=== PATIENT | male | born 1980 | race African-American/Black ===

== ENCOUNTER 2017-04-03 16:18 | Emergency (ER) | payer SELFPAY ==
[~2017-04-03] VITALS: Ht 195.6 cm; Wt 99.8 kg
[~2017-04-03 16:18] MED LIST: HYDR-971 PO; SULF1TAB24 PO
[2017-04-03 16:28] VITALS: BP 160/96
[2017-04-03] MEDS ORDERED: ORPH100T PO (16:37)
[2017-04-03] MEDS ORDERED: TRAM50TA PO (16:37)
[2017-04-03] MEDS ORDERED: NAPR500T PO (16:37)
--- NOTE | 2017-04-03 16:38 | PHYS DOC ---
Past Medical History Past Medical History: Abscess Past Surgical History: No Surgical History Alcohol Use: Occasionally Drug Use: None Adult General Chief Complaint Chief Complaint: Neck Pain HPI HPI Patient is a 37 year old male that presents to the emergency department with complaints of neck pain for 2 days. Patient states that today after he slept on the couch with his 6-year-old daughter he awakened with neck pain. He states he' s had no fever, no headache, no nausea, no vomiting, no sore throat. Patient states that the pain is in the sides of the neck. He has no difficulty with swallowing or phonation. He has no numbness, tingling or loss of function of upper lower extremity is. Radiation pain. Review of Systems Review of Systems Constitutional: Denies fever or chills [] Eyes: Denies change in visual acuity, redness, or eye pain [] HENT: Denies nasal congestion or sore throat [] Respiratory: Denies cough or shortness of breath [] Cardiovascular: No additional information not addressed in HPI [] GI: Denies abdominal pain, nausea, vomiting, bloody stools or diarrhea [] : Denies dysuria or hematuria [] Musculoskeletal: Neck pain Integument: Denies rash or skin lesions [] Neurologic: Denies headache, focal weakness or sensory changes [] Endocrine: Denies polyuria or polydipsia [] Allergies Allergies Allergies Coded Allergies Type Severity Reaction Last Updated Verified No Known Drug Allergies 09/13/16 No Physical Exam Physical Exam Constitutional: Well developed, well nourished, no acute distress, non-toxic appearance. [] HENT: Normocephalic, atraumatic, bilateral external ears normal, oropharynx moist, no oral exudates, nose normal. [] Eyes: PERRLA, EOMI, conjunctiva normal, no discharge. [] Neck: No midline or para cervical tenderness. The patient does have mild tenderness to palpate sternocleidomastoid muscle. No meningeal signs Cardiovascular:Heart rate regular rhythm, no murmur [] Lungs & Thorax: Bilateral breath sounds clear to auscultation [] Abdomen: Bowel sounds normal, soft, no tenderness, no masses, no pulsatile masses. [] Skin: Warm, dry, no erythema, no rash. [] Back: No tenderness, no CVA tenderness. [] Extremities: No tenderness, no cyanosis, no clubbing, ROM intact, no edema. [] Neurologic: Alert and oriented X 3, normal motor function, normal sensory function, no focal deficits noted. Cranial nerves II through XII are grossly intact, muscle strength is 5 over 5 all extremities [] Psychologic: Affect normal, judgement normal, mood normal. [] EKG EKG [] Radiology/Procedures Radiology/Procedures [] Course & Med Decision Making Course & Med Decision Making Pertinent Labs and Imaging studies reviewed. (See chart for details) [] Dragon Disclaimer Dragon Disclaimer This electronic medical record was generated, in whole or in part, using a voice recognition dictation system. Departure Departure Impression: Primary Impression: Neck muscle strain Disposition: HOME, SELF-CARE Condition: STABLE Referrals: NO PCP (PCP) [facility] Patient Instructions: Muscle Strain Additional Instructions: Moist heat to affected area Scripts Tramadol Hcl (TRAMADOL HCL) 50 Mg Tablet 50 MG PO q 6hours Y for PAIN, #20 TAB 0 Refills Prov: RAMÍREZ PINEDA APRN 04/03/17 Naproxen (NAPROSYN) 500 Mg Tablet 500 MG PO BID, #20 TAB Prov: RAMÍREZ PINEDA APRN 04/03/17 Orphenadrine Citrate (ORPHENADRINE CITRATE) 100 Mg Tablet.er 1 TAB PO BID, #20 TAB 1 Refill Prov: RAMÍREZ PINEDA APRN 04/03/17 RAMÍREZ PINEDA APRN Apr 03, 2017 16:38
[2017-04-03] MEDS ORDERED: KETOROLAC TROMETHAMINE 60 MG/2 ML INJ. IM ONE (16:45)
[2017-04-03] MEDS ORDERED: ORPHENADRINE CITRATE 60 MG/2 ML VIAL. IM ONE (16:45)
== END 2017-04-03 17:12 | disposition home or self-care (01) ==
LOC: ER 16:18
DX: S16.1XXA Strain of muscle, fascia and tendon at neck level, initial encounter (principal); X58.XXXA Exposure to other specified factors, initial encounter; Y93.89 Activity, other specified; Y92.89 Other specified places as the place of occurrence of the external cause; Y99.8 Other external cause status
CPT/HCPCS: 96372; 99284; J1885; J2360